=== PATIENT | female | born 1935 | race Caucasian/White ===

== ENCOUNTER 2020-03-07 13:26 | Inpatient (IN) | payer OTHER ==
[~2020-03-07] VITALS: Ht 162.6 cm; Wt 91.6 kg
[~2020-03-07 13:26] MED LIST changes: -ALLOPURINOL 30300 M1 PO; -FEOSOL325 M1 PO; -FOSAMAX 70 MG T70 MG PO; -LEVO-T50 MCG PO; -NEURONTIN300 MG PO; -ST. JOSEPH ASPI81 MG PO; -TOPROL XL25 MG PO
[2020-03-07 13:39] VITALS: BP 144/56
[2020-03-07 15:18] LABS: ABSOLUTE NEUTROPHILS 5.5 thou/uL (1.4-8.2); BASOPHILS 1.3 % (0.0-2.0); EOSINOPHILS 3.2 % (0.0-3.0); HEMATOCRIT 41.6 % (37.0-47.0); HEMOGLOBIN 14.6 gm/dL (12.0-15.0); LYMPHOCYTES 16.9 % (24.0-44.0); MCH 34.3 pg (26.0-34.0); MCV 98.1 fL (80.0-100.0); MONOCYTES 8.8 % (1.0-8.0); PLATELET COUNT 276 thou/uL (150-400); POLYS 69.8 % (36.0-66.0); RBC 4.24 mil/uL (4.20-5.00); RDW 15.2 % (10.5-14.5); WBC 7.9 thou/uL (4.0-11.0)
[2020-03-07 15:32] LABS: CALCIUM 9.7 mg/dL (8.5-10.1); POTASSIUM 3.9 mmol/L (3.5-5.1); PROTIME 10.6 Seconds (9.3-11.4)
[2020-03-07 15:38] LABS: ALBUMIN 4.1 g/dL (3.4-5.0); TOTAL BILIRUBIN 0.4 mg/dL (0.2-1.0); TOTAL PROTEIN 7.6 g/dL (6.4-8.2)
[2020-03-07 16:37] VITALS: BP 144/56
[2020-03-07 17:46] VITALS: BP 149/57
[2020-03-07 17:55] VITALS: BP 126/69
[2020-03-07 20:00] VITALS: BP 141/36
--- NOTE | 2020-03-07 20:09 | NUR ---
ASSUMED CARE APPROX 1748. PT ALERT AND ORIENTED X4. ASSESSMENT CHARTED AND VSS. PT ADMITTED FROM ER TO 2N FOR PACEMAKER PLACEMENT TOMORROW. PT ON ROOM AIR W/O SIGNS OF DISTRESS NOTED. PT DENIES PAIN. PT DENIES CHEST PAIN.
[2020-03-07] MEDS ORDERED: ALLOPURINOL 30300 M1 PO (21:45)
[2020-03-07] MEDS ORDERED: FOSAMAX 70 MG T70 MG PO (21:45)
[2020-03-07] MEDS ORDERED: ST. JOSEPH ASPI81 MG PO (21:46)
[2020-03-07] MEDS ORDERED: FEOSOL325 M1 PO (21:47)
[2020-03-07] MEDS ORDERED: LEVO-T50 MCG PO (21:48)
[2020-03-07] MEDS ORDERED: NEURONTIN300 MG PO (21:48)
[2020-03-07] MEDS ORDERED: TOPROL XL25 MG PO (21:50)
[2020-03-07 23:27] VITALS: BP 132/34
[2020-03-08] VITALS (15 sets, daily range): BP systolic 124–155; BP diastolic 43–60
--- NOTE | 2020-03-08 01:44 | NUR ---
ASSESSMENTS CHARTED, MEDS CHARTED GIVEN. PATIENT RESTING IN BED DURING SHIFT. PATIENT ARRIVED PRIOR TO SHIFT CHANGE, DAY SHIFT NURSE FINISHED ADMITION EXCEPT FOR MED RECONCILIATION. WHICH WE DID AFTER FIRST ASSESSMENT. PATIENT NPO SINCE MIDNIGHT FOR PACEMAKER PLACEMENT IN THE MORNING. USES 2 CANES WHEN AMBULATING. COVID TEST CAME BACK NEGATIVE. DENIED PAIN. FALL PRECAUTIONS IN PLACE DURING SHIFT.
--- NOTE | 2020-03-08 08:45 | EKG ---
[facility] [place] [address] ELECTROCARDIOGRAM REPORT Name: MOSHE CASANOVA Room #: 206-P ADM IN M.R.#: [id number] Admission: 03/07/20 Attend Phys: Shreyas Epstein MD Discharge: Date of : 31 Report #: [id number] THIS REPORT FOR: cc: SHANNON - Eloisa family physician/PCP SHANNON - No family physician/PCP Jem Lugo MD [facility] THIS REPORT FOR: //name// [facility] ED Test Date: 2020-03-07 Test Time: 14:04:05 Pat Name: MOSHE CASANOVA Department: Room: 206 Gender: F Classifier: DREAD : 1935 Requested By: Hima Steve Order Number: [id number] MD: Jem Lugo Measurements Intervals [place] Rate: 74 P: 20 TX: 298 QRS: 7 QRSD: 95 T: -20 QT: 418 QTc: 464 Interpretive Statements Sinus rhythm 1 AVB Borderline T abnormalities, diffuse leads Compared to ECG 12/18/2014 07:41:00 T-wave abnormality now present Electronically Signed On 03-08-2020 8:45:04 CDT by Jem Lugo [email or web address] <ELECTRONICALLY SIGNED> By: Jem Lugo MD, FAC 03/08/20 0845 1404 1404 Jem Lugo MD, FAC /EPI
--- NOTE | 2020-03-08 13:30 | P ---
[facility] [place] [address] PROCEDURE REPORT Name: MOSHE CASANOVA Room #: 206-P ADM IN M.R.#: [id number] Admission: 03/07/20 Attend Phys: Shreyas Epstein MD Discharge: Date of : 33 Report #: [id number] THIS REPORT FOR: cc: SHANNON - Eloisa family physician/PCP SHANNON - Eloisa family physician/PCP Shreyas Epstein MD ~ CC: SHANNON physician/PCP Shreyas Epstein PROCEDURE: Pacemaker implantation. HISTORY: The patient is an 85-year-old female with history of coronary artery disease, status post CABG as well as atrial fibrillation, on amiodarone and rate control medications. 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 She is here for dual chamber pacemaker implantation. ANESTHESIA: The patient underwent MAC anesthesia with no anesthesia-related complications. DESCRIPTION OF PROCEDURE: The patient underwent informed consent. She was then prepped and draped in a sterile fashion. She underwent a venogram showing patency of the left axillary vein. She received IV antibiotics prior to initiation of the procedure. Next, lidocaine was injected below the level of the left clavicle. Incision was made, pocket was created over the prepectoral fascia and access was obtained twice to left axillary vein with sheaths positioned using the modified Seldinger technique. Next, the leads were positioned in the right ventricular apical septum and the right atrial appendage, both with adequate pacing and sensing thresholds. The leads were sutured to the prepectoral fascia and connected to the device. Tug test performed. Pocket irrigated with vancomycin and the pocket closed in 2 layers using 2-0 for the deep layer, 3-0 for the mid layer and surgical glue placed to outer skin layer. The patient awoke neurologically and hemodynamically intact. No complications and no significant bleeding. The pacemaker and leads were manufactured by [employer]. The device was Kathleen, MRI compatible device, serial #[id number]. Atrial lead was a 5076, 52 cm, serial #[id number]. RV lead was a 5076, 58 cm, serial #[id number]. The atrial lead demonstrated P-wave of 1.25 millivolts, pacing impedance 532 ohms, pacing threshold of 1 volt at 0.5 milliseconds. RV lead demonstrated R-wave of 10 millivolts, pacing impedance was 779 ohms, pacing threshold 1.3 volts at 0.4 milliseconds. The device was programmed to the DDDR 60-130. [address] [address] PROCEDURE REPORT Name: MOSHE CASANOVA Room #: 206-P [facility] IN M.R.#: [id number] Admission: 03/07/20 Attend Phys: Shreyas Epstein MD Discharge: Date of : 31 Report #: [id number] CONCLUSION: Successful dual-chamber pacemaker implantation. <ELECTRONICALLY SIGNED> By: Shreyas Epstein MD 03/08/20 1330 1152 1202 Shreyas Epstein MD /nt
--- NOTE | 2020-03-08 15:46 | NUR ---
INITIAL ASSESSMENT: Received consult for HH services. SHANICE reviewed chart. Pt was admitted from home due to weakness/lightheadedness. Pt with hx of CABG and HTN. Pt had pacemaker placed today. Discharge home with HH is anticipated for tomorrow. SHANICE placed call to pt's room. No answer. SHANICE spoke with pt's son and dtr-in-law via phone. Introduced role of SW. Pt lives at home alone and is alert/orientated x 4. Pt has two canes and a walker to use if needed. Pt has been to [facility] Swing Bed unit in the past. Pt's PCP is Dr. Louis Lozano. Pt's family is agreeable with HH services. Options discussed. No preference voiced. SHANICE faxed referral to [facility] and spoke with Elsie in intake, who confirms they go to pt's home in [place], [place]. [facility] would be able to start care on Thursday. Pt's family will provide transportation home tomorrow. Contact info for HH placed in pt's discharge summary. SHANICE is following to assist as needed with discharge planning.
--- NOTE | 2020-03-08 17:18 | NUR ---
PT CARE ASSUMED APPROX 0700. ASSESSMENTS CHARTED. PT DENIES PAIN AND SOA. VSS. POST PPM PLACEMENT PT HAS NO ISSUES. LEFT CHEST INCISION IS C/D/I. PT DENIES QUESTIONS OR CONCERNS REGARDING POC. LUE IMMOBILIZER IN PLACE. NO DISTRESS NOTED.
[2020-03-09 04:00] VITALS: BP 131/54
--- NOTE | 2020-03-09 06:05 | NUR ---
Assumed pt care at 1900. Pt is alert and oriented. No sign of distress noted in pt. Denies any pain. Pt is stable, fall precaution in place. Assessment completed and documented. Scheduled meds administered to pt. Incision site is clean, dry and intact. Arm immobilizer in place. Continue to monitor. No acute events overnight. No further needs at this time
[2020-03-09 08:26] VITALS: BP 146/57
[2020-03-09 09:23] VITALS: BP 125/44
--- NOTE | 2020-03-09 11:00 | NUR ---
PT CARE ASSUMED APPROX 0700. ASSESSMENT CHARTED. VSS. PT DENIES PAIN AND SOA. UP WITH SBA AND USE OF CANE. DISCHARGE EDUCATION DONE WITH PT, AND BRYANT. EDUCATION REINFORCED BY THIS NURSE. PT DENIES QUESTIONS OR CONCERNS REGARDING POST HOSPITAL CARES. IV OUT, TELEL OFF. ALL BELONGINGS IN PT POSSESSION. PT ESCORTED OUT VIA WHEELCHAIR BY NURSING STAFF.
[2020-03-09 14:45] VITALS: BP 125/44
--- NOTE | 2020-03-09 15:00 | NUR ---
PT DISCHARGING TODAY TO HOME WITH [facility] FAXED DC ORDERS/SUMMARY RECEIVED CONFIRMATION AND SPOKE WITH INTAKE THEY WILL SEE PT Thursday.
== END 2020-03-09 11:12 | disposition home health service (06) | DRG 244 ==
LOC: ER 13:26 → 2N 15:02 → EROBS 15:02 → 2N 17:43
PROVIDERS: Nurse Practitioner; ADMIT Internal Medicine Cardiovascular Disease; ATTEND Internal Medicine Cardiovascular Disease
DX: I49.5 Sick sinus syndrome (principal); Z96.641 Presence of right artificial hip joint; Z96.653 Presence of artificial knee joint, bilateral; I10 Essential (primary) hypertension; I25.10 Atherosclerotic heart disease of native coronary artery without angina pectoris; I48.0 Paroxysmal atrial fibrillation; G47.33 Obstructive sleep apnea (adult) (pediatric); M10.9 Gout, unspecified; E66.9 Obesity, unspecified; Z20.828 Contact with and (suspected) exposure to other viral communicable diseases; M81.0 Age-related osteoporosis without current pathological fracture; Z86.718 Personal history of other venous thrombosis and embolism; Z88.1 Allergy status to other antibiotic agents; Z90.49 Acquired absence of other specified parts of digestive tract; Z95.1 Presence of aortocoronary bypass graft; Z88.2 Allergy status to sulfonamides; Z88.8 Allergy status to other drugs, medicaments and biological substances; Z68.34 Body mass index [BMI] 34.0-34.9, adult; Z82.49 Family history of ischemic heart disease and other diseases of the circulatory system; Z83.6 Family history of other diseases of the respiratory system
CPT/HCPCS: 10081; 62110; 62900; 70005

== ENCOUNTER → 2020-03-07 | Outpatient (CLI) | payer OTHER ==
[~2020-03-07] MED LIST: ACETAMINOPHEN-1 EAC1 PO; ALBUTEROL2.5 MG/0.5 INH; ALLOPURINOL 30300 M1 PO; ASPIR 8181 MG PO; CENTRUM SILVER1 EAC4 PO; COLACE 100 MG100 MG PO; COUMADIN 2 MG TA2 M1 PO; COUMADIN 3 MG TA3 M1 PO; COUMADIN 4 MG TA4 M1 PO; DULCOLAX5 MG PO; FEOSOL325 M1 PO; FISH OIL 1,001000 M2 PO; FLONASE 0.05%50 MCG NASAL; FOSAMAX 70 MG T70 MG PO; GABAPENTIN 100100 MG PO; KLOR-CON 1010 MEQ PO; LASIX 20 MG TAB20 MG PO; LEVO-T50 MCG PO; LISINOPRIL2.5 MG PO; MILK OF MA2400 MG/10 PO; MIRALAX17 GM PO; MS CONTIN15 MG PO; NEURONTIN300 MG PO; PACERONE 200 M200 M1 PO; PERCOCET PO; PRAVACHOL40 MG PO; PRILOSEC40 MG PO; ST. JOSEPH ASPI81 MG PO; TOPROL XL25 MG PO; TYLENOL325 MG PO
== END ==
LOC: SJCVC 13:27
PROVIDERS: ATTEND Internal Medicine Cardiovascular Disease
DX: I44.0 Atrioventricular block, first degree (principal); R94.31 Abnormal electrocardiogram [ECG] [EKG]; I49.5 Sick sinus syndrome; I25.810 Atherosclerosis of coronary artery bypass graft(s) without angina pectoris; R55 Syncope and collapse; I48.0 Paroxysmal atrial fibrillation; I10 Essential (primary) hypertension; K21.9 Gastro-esophageal reflux disease without esophagitis; I48.91 Unspecified atrial fibrillation; M81.0 Age-related osteoporosis without current pathological fracture; I82.409 Acute embolism and thrombosis of unspecified deep veins of unspecified lower extremity; Z79.899 Other long term (current) drug therapy

== ENCOUNTER → 2020-11-30 | Outpatient (CLI) | payer OTHER ==
[~2020-11-30] VITALS: Ht 157.5 cm; Wt 88.5 kg
[~2020-11-30] MED LIST changes: +ALLOPURINOL 30300 M1 PO; +FEOSOL325 M1 PO; +FOSAMAX 70 MG T70 MG PO; +FUROSEMIDE 40 M40 MG PO; +LEVO-T50 MCG PO; +MIRALAX17 G1 PO; +NEURONTIN300 MG PO; +ROXICODONE5 MG PO; +ST. JOSEPH ASPI81 MG PO; +TOPROL XL25 MG PO; +XARELTO20 MG PO
[2020-11-30 08:14] LABS: HEMATOCRIT 40.8 % (37.0-47.0); HEMOGLOBIN 13.8 gm/dL (12.0-15.0); MCH 33.3 pg (26.0-34.0); MCHC 33.9 g/dL (28.0-37.0); MCV 98.2 fL (80.0-100.0); RBC 4.16 mil/uL (4.20-5.00); RDW 14.9 % (10.5-14.5); WBC 7.8 thou/uL (4.0-11.0)
[2020-11-30 08:16] VITALS: BP 142/57
[2020-11-30 08:21] LABS: CALCIUM 10.3 mg/dL (8.5-10.1); CREATININE 1.1 mg/dL (0.6-1.0); POTASSIUM 3.9 mmol/L (3.5-5.1)
--- NOTE | 2020-11-30 09:09 | EKG ---
[place] [address] [facility] [place] [address] ELECTROCARDIOGRAM REPORT Name: MOSHE CASANOVA Room #: REG [facility]#: [id number] Admission: 11/30/20 Attend Phys: Franki Uriostegui MD, Discharge: Date of : 31 Report #: [id number] [facility] Test Date: 2020-11-30 Test Time: 08:06:23 Pat Name: MOSHE CASANOVA Department: Room: Gender: F Screenplay Writer: CASANDRA : 1935 Requested By: Franki Uriostegui Order Number: [id number] MD: Vivek Enriquez Measurements Intervals [place] Rate: 70 P: 36 WA: 314 QRS: 20 QRSD: 106 T: -11 QT: 424 QTc: 458 Interpretive Statements Sinus rhythm Prolonged WA interval Poor R wave progression Nonspecific T wave abnormality Baseline wander in lead(s) V6 Compared to ECG 03/07/2020 14:04:05 No significant change was found Electronically Signed On 11-30-2020 9:09:39 CDT by Vivek Enriquez [email or web address] <ELECTRONICALLY SIGNED> By: Vivek Enriquez MD, [facility] 11/30/2009 08 0806 Vivek Enriquez MD, [facility] /EPI
--- NOTE | 2020-11-30 18:06 | CATHLAB ---
[facility] [place] [address] INVASIVE PROCEDURE REPORT Name: MOSHE CASANOVA Room #: REG DANA Smith#: [id number] Admission: 11/30/20 Attend Phys: Franki Uriostegui MD, Discharge: Date of : 31 Report #: [id number] THIS REPORT FOR: cc: Louis Han James L. DO Mancuso, Gerald M. MD [facility] ~ APPROVED REPORT Study performed: 11/30/2020 09:20:06 Patient Details Patient Status: Out-Patient Room #: The patient is a 85 year-old female Event Personnel Franki Uriostegui Sql Ssrs Developer, Julia Carroll RN RN, Marily Rubio RTR, Giancarlo Nathan Roberta Monitor Procedures Performed Art Access - R femoral artery* David Access - L femoral vein Right and Left Heart Cath w/or w/o Coronarie [id number] [facility] Aortogram Abdominal Peripheral Angio 327764 Hemostasis w/ Mynx Hemostasis with Manual pressure 05604 Initial Mod Sed Same Phys/QHP Gr5y 070445 05258 Mod Sed Same Phys/QHP Ea 410761 Indication Chest pain Procedure Narrative The Right Groin^ was infiltrated with 1% Lidocaine subcutaneous anesthesia. A PINNACLE 6FR Sheath #[id number] sheath was inserted into the RFA^. Coronary angiography was performed using coronary diagnostic catheters. The right coronary system was accessed and visualized with a JR4 catheter. The left coronary system was accessed and visualized with a JL4 catheter. The left ventricle was accessed and visualized with a STR PIG catheter. Left ventriculogram was performed in 30 degree projection. Hemostasis was obtained with manual pressure following sheath removal without any complications. There was no hematoma. GRAFTS: HERMOSILLO IS ACCLUDED, SVG TO HARISH, SVG TO OM. Intraoperative Conscious Sedation Sedation start time: 1045 Case end Time: [facility] [address] [place] [address] INVASIVE PROCEDURE REPORT Name: MOSHE CASANOVA Room #: REG [facility]#: [id number] Admission: 11/30/20 Attend Phys: Franki Uriostegui, Discharge: Date of : 31 Report #: [id number] Fentanyl 50 mcg Versed 1 mg Fluoro Time: 7.30 minutes Dose: DAP 02506.00 cGycm2 1467 mGy Contrast Type and Amount: Omnipaque 175 ml Hemodynamics The right atrial mean pressure is 13 mmHg. The right ventricular pressure is 34/0 mmHg. The pulmonary artery pressure is 37/13 mmHg with a mean of 22 mmHg. The mean pulmonary capillary wedge pressure is 15 mmHg. The aortic pressure is 135/48 mmHg with a mean of 33 mmHg. The left ventricular pressure is 131/5 mmHg with a mean of mmHg. The left ventricular end diastolic pressure is 16 mmHg. The cardiac output using thermo method is 4.90 L/min. The cardiac index using thermo method is 2.56 L/min/m2. Conclusion #1. Normal left jugular size and systolic function normal EF 60%. #2 abdominal aortogram with mild irregularity mild calcification no aneurysm or occlusive disease. #3 left main mildly diseased and calcified giving rise to LAD and circumflex widely patent. #4 the LAD is moderately diseased 5060% proximal lesion diffuse distal disease no high-grade occlusive disease diagonal system also mildly diseased. #5 circumflex OM is nondominant it looks like there is a first OM branch was occluded and small in caliber. Some collateral filling from the left system to the distal circumflex. #6 a HERMOSILLO graft is a atretic and nonfunctional. Probable due to the brisk flow through the LAD. #7 the [place] RCA is occluded proximally. #8 the SVG to the PDA is intact mild irregularity no occlusive disease. #9 SVG or possible prior radial graft to OM branch remains patent with mild disease. Recommendations and plan: Continue aggressive risk factor modification. There is no indication for coronary intervention. Patient will follow post coronary angiogram protocol. Follow-up with Dr. Contreras [facility]. <ELECTRONICALLY SIGNED> By: Franki Uriostegui MD, [facility] 11/30/201805 05 05 Franki Uriostegui MD, FACC /INF
== END | disposition home or self-care (01) ==
LOC: CATH 11-27 07:46
PROVIDERS: ATTEND Internal Medicine Cardiovascular Disease
DX: R07.9 Chest pain, unspecified (principal); I25.10 Atherosclerotic heart disease of native coronary artery without angina pectoris; I70.0 Atherosclerosis of aorta; I11.0 Hypertensive heart disease with heart failure; I50.9 Heart failure, unspecified; E78.5 Hyperlipidemia, unspecified; K21.9 Gastro-esophageal reflux disease without esophagitis; Z96.653 Presence of artificial knee joint, bilateral; Z96.643 Presence of artificial hip joint, bilateral; Z98.890 Other specified postprocedural states; Z79.899 Other long term (current) drug therapy; Z90.49 Acquired absence of other specified parts of digestive tract; Z95.1 Presence of aortocoronary bypass graft